=== PATIENT | female | born 1945 | race Caucasian/White ===

== ENCOUNTER → 2016-09-09 | Outpatient (CLI) | payer MEDICARE, BC ==
[~2016-09-09] MED LIST: ACETAMINOPHEN PO; ALPRAZOLAM PO; BACTRIM 400-801 TA1 PO; CATAPRES0.1 MG PO; CIPRO PO; CLONIDINE HCL0.1 MG PO; COUMADIN2.5 MG PO; COUMADIN5 MG PO; DETROL PO; HYDROCODON-ACE1 EAC1 PO; HYDROCODON-ACE1 EAC7 PO; HYDROCODON-ACE1 EAC9 PO; IPRAT-ALBUT 0.5-3 ML INH; LIPITOR PO; LISINOPRIL20 MG PO; LOVENOX80 MG/0.8 INJ; METHYLDOPA500 MG PO; NITROFURANTOIN100 M3 PO; NORCO1 TAB 10/3 PO; NORVASC10 MG PO; PANTOPRAZOLE SO40 MG PO; PLAVIX PO; PREVACID15 MG PO; PROTONIX PO; REMERON PO; SIMVASTATIN20 MG PO; SYMBICORT INH; TYLENOL325 M1 PO; VICODIN 5/500 T1 TAB PO; WARFARIN SODIUM1 MG PO; WARFARIN SODIUM4 M1 PO; XANAX0.5 M1 PO; ZOCOR20 MG PO; ZOFRAN PO; ZOLOFT PO; ZYRTEC PO; ZYRTEC10 M1 PO
[2016-09-09 14:17] LABS: INR 1.7; PROTHROMBIN TIME (PATIENT) 18.7 SECONDS (9.6-11.5)
== END | disposition home or self-care (01) ==
LOC: CLAB 13:04
DX: I10 Essential (primary) hypertension (principal)
CPT/HCPCS: 36415; 85610

== ENCOUNTER → 2016-09-26 | Outpatient (CLI) | payer MEDICARE, BC ==
[2016-09-26 14:02] LABS: INR 1.6; PROTHROMBIN TIME (PATIENT) 17.7 SECONDS (9.6-11.5)
== END | disposition home or self-care (01) ==
LOC: CLAB 13:08
DX: Z51.81 Encounter for therapeutic drug level monitoring (principal); Z79.01 Long term (current) use of anticoagulants
CPT/HCPCS: 36415; 85610

== ENCOUNTER → 2016-10-17 | Outpatient (CLI) | payer MEDICARE, BC ==
[2016-10-17 14:23] LABS: INR 1.9; PROTHROMBIN TIME (PATIENT) 20.6 SECONDS (9.6-11.5)
== END | disposition home or self-care (01) ==
LOC: CLAB 13:35
DX: Z51.81 Encounter for therapeutic drug level monitoring (principal); Z79.01 Long term (current) use of anticoagulants
CPT/HCPCS: 36415; 85610

== ENCOUNTER → 2016-11-19 | Outpatient (CLI) | payer MEDICARE, BC ==
[2016-11-19 14:37] LABS: INR 2.2; PROTHROMBIN TIME (PATIENT) 23.9 SECONDS (10.0-11.7)
== END | disposition home or self-care (01) ==
LOC: CLAB 13:51
DX: Z51.81 Encounter for therapeutic drug level monitoring (principal); Z79.01 Long term (current) use of anticoagulants
CPT/HCPCS: 36415; 85610

== ENCOUNTER → 2016-12-31 | Outpatient (CLI) | payer MEDICARE, BC ==
[2016-12-31 14:16] LABS: INR 3.1; PROTHROMBIN TIME (PATIENT) 33.8 SECONDS (10.0-11.7)
== END | disposition home or self-care (01) ==
LOC: CLAB 13:14
DX: Z51.81 Encounter for therapeutic drug level monitoring (principal); Z79.01 Long term (current) use of anticoagulants
CPT/HCPCS: 36415; 85610

== ENCOUNTER → 2017-02-06 | Outpatient (CLI) | payer MEDICARE, BC ==
[2017-02-06 16:08] LABS: INR 3.6; PROTHROMBIN TIME (PATIENT) 39.2 SECONDS (10.0-11.7)
[2017-02-06 16:58] LABS: BUN/CREATININE RATIO 21.81; CALCIUM SERUM 8.9 mg/dL (8.4-10.2); CREATININE SERUM 1.1 mg/dL (0.6-1.4); GLOM FILT RATE Estimated 50.8 mL/min (>60)
== END | disposition home or self-care (01) ==
LOC: CLAB 15:11
DX: I10 Essential (primary) hypertension (principal); E78.2 Mixed hyperlipidemia; Z79.01 Long term (current) use of anticoagulants
CPT/HCPCS: 36415; 80048; 80061; 84450; 84460; 85610